=== PATIENT | male | born 1990 | race Caucasian/White ===

== ENCOUNTER 2023-01-11 19:48 | Emergency (ER) | payer SELFPAY ==
[~2023-01-11] VITALS: Ht 167.6 cm; Wt 99.3 kg
[2023-01-11 19:58] VITALS: BP 163/95
--- NOTE | 2023-01-11 20:02 | NUR ---
Dr. New examining patient in triage room.
[2023-01-11] MEDS ORDERED: KETOROLAC 30 MG/ML VIAL IM ONE (20:05)
--- NOTE | 2023-01-11 20:22 | NUR ---
Patient returned back from X-ray.
[2023-01-11 22:00] VITALS: BP 163/95
--- NOTE | 2023-01-11 22:00 | NUR ---
C/O right arm pain x today. Patient reported, a metal wrack fell on his right arm while was working ~ 13.40 PM. PMHx: DENIES
--- NOTE | 2023-01-11 22:31 | NUR ---
Patient taken to bed 12.
[2023-01-11] MEDS ORDERED: NAPR-54 PO (22:37)
--- NOTE | 2023-01-11 22:45 | NUR ---
Patient discharged with v/s stable. Written and verbal after care instructions given and explained. Patient alert, oriented and verbalized understanding of instructions. Ambulatory with steady gait. All questions addressed prior to discharge. ID band removed. Patient advised to follow up with PMD. Rx of naproxen given. Patient educated on indication of medication including possible reaction and side effects. Opportunity to ask questions provided and answered. pt left with his belongings.
== END 2023-01-11 22:45 | disposition home or self-care (01) ==
LOC: MED 19:48
DX: S50.01XA Contusion of right elbow, initial encounter (principal); Z79.899 Other long term (current) drug therapy; Y33.XXXA Other specified events, undetermined intent, initial encounter; Y93.89 Activity, other specified; Y92.89 Other specified places as the place of occurrence of the external cause; Y99.8 Other external cause status
CPT/HCPCS: 73080; 96372; 99283; J1885